=== PATIENT | female | born 1950 | race Caucasian/White ===

== ENCOUNTER 2019-11-09 09:12 | Outpatient (RCR) | payer MEDICARE ==
[~2019-11-09] VITALS: Ht 154 cm; Wt 69.5 kg
[~2019-11-09 09:12] MED LIST: AMIT50TA3 PO; BUPR150T7 PO; FLUO40CA12 PO; LEVO112T55 PO; LISI1TAB29 PO; METH-290 PO; OMEP20CA18 PO; TIZA4CAP8 PO
== END 2019-11-09 09:14 | disposition home or self-care (01) ==
LOC: PREOP 09:12
PROVIDERS: ATTEND Podiatrist Foot & Ankle Surgery
DX: Z01.818 Encounter for other preprocedural examination (principal)

== ENCOUNTER 2019-11-15 06:06 | Day surgery (SDC) | payer MEDICARE ==
[2019-11-15] VITALS (10 sets, daily range): BP systolic 133–155; BP diastolic 65–98
[~2019-11-15] VITALS: Ht 152.4 cm; Wt 70.5 kg
[2019-11-15] MEDS ORDERED: LACTATED RINGERS 1,000 ML IV PRN (06:10)
[2019-11-15] MEDS ORDERED: CLINDAMYCIN 600 MG/50 ML IVPB 50 ML IV ONE (06:15)
[2019-11-15] MEDS ORDERED: CATHETER FLUSH 10 ML SYR IV PRN (06:30)
[2019-11-15] MEDS ORDERED: ONDANSETRON 4 MG/2 ML (SDV) Z0FRAN ONE (06:41)
[2019-11-15] MEDS ORDERED: proPOfol 200 MG/20 ML (DIPRIVAN) VIAL IV ONE (06:41)
[2019-11-15] MEDS ORDERED: LIDOCAINE PF 2% 5 ML (XYLOCAINE) VIAL ONE (06:42)
[2019-11-15] MEDS ORDERED: MIDAZOLAM 2 MG/2 ML (VERSED) VIAL ONE (06:42)
[2019-11-15] MEDS ORDERED: fentaNYL INJECTION 100 MCG/2 ML AMP ONE (06:42)
[2019-11-15] MEDS ORDERED: SEVOFLURANE (ULTANE) 15 ML INHAL SOLN ONE (06:46)
[2019-11-15] MEDS ORDERED: BUPIVACAINE 0.5% 30 ML (SENSORCAINE) VIAL ONE (06:53)
--- NOTE | 2019-11-15 07:43 | Progress Note-Pre Operative ---
Pre-Operative Progress Note H&P Reviewed The H&P was reviewed, patient examined and no changes noted. Date Seen by Provider: Nov 15, 2019 Time Seen by Provider: 07:43 Date H&P Reviewed: Nov 15, 2019 Time H&P Reviewed: 07:43 Pre-Operative Diagnosis: Hallux valgus, 2nd Hammertoe, right KAM HEWITT DPM Nov 15, 2019 07:43
[2019-11-15] MEDS ORDERED: ONDANSETRON 4 MG/2 ML (SDV) Z0FRAN IVP PRN (09:30)
[2019-11-15] MEDS ORDERED: morphine INJ 10 MG/ML 1ML (SYR OR VIAL) IVP ONE (09:30)
[2019-11-15] MEDS ORDERED: fentaNYL INJECTION 100 MCG/2 ML AMP IVP ONE (09:30)
[2019-11-15] MEDS ORDERED: LACTATED RINGERS 1,000 ML IV SCH (09:35)
--- NOTE | 2019-11-15 09:35 | Progress Note-Post Operative ---
Post-Operative Progess Note Surgeon (s)/Assembly Machine Tool Setter (s) Surgeon KAM HEWITT DPM Assembly Machine Tool Setter: none Pre-Operative Diagnosis Hallux valgus, 2nd Hammertoe, right Post-Operative Diagnosis same Procedure & Operative Findings Date of Procedure 11/15/19 Procedure Performed/Findings Oracio-Juan Francisco type bunionectomy, reduction of 2nd hammertoe, right foot Anesthesia Type General Estimated Blood Loss Estimated blood loss (mL): Minimal Specimens/Packing Specimens Removed Bone from 1st metatarsal head and 2nd toe proximal phalanx KAM HEWITT DPM Nov 15, 2019 09:35
[2019-11-15] MEDS ORDERED: HYDR-3812 PO (09:39)
[2019-11-15] MEDS ORDERED: CLIN150C2 PO (09:39)
[2019-11-15] MEDS ORDERED: HYDROcodone/APAP 5 MG/325 MG (LORTAB) TAB PO PRN (09:45)
--- NOTE | 2019-11-15 10:02 | Diagnostic Imaging Report ---
INDICATION: Postop foot surgery. COMPARISON: None FINDINGS: Frontal and lateral radiographic views of the right foot were obtained and show postsurgical changes of hallux valgus revision. Orthopedic nail is also seen traversing the 2nd toe. Osteotomy defect involving the distal margins of the proximal phalanx are noted. Orthopedic nail is also present within the distal margins of the 1st metatarsal. No unexpected radiopaque foreign bodies are seen. Joint spaces are maintained. IMPRESSION: 1. Expected postsurgical changes of the right foot as described above. Dictated by: Dictated on workstation # [id number]
--- NOTE | 2019-11-15 11:22 | Physical Therapy Ortho Eval ---
PT Orthopedic Evaluation Type of Surgery hallux valgus, right hammertoe Prior Level of Function Current Living Status: Alone Locomotion (Upon Admit): Front Wheeled Walker Subjective Subjective Patient in bed pre tx, agrees to PT, has no complaints of pain. Entry Into Home: Elevator Motor Control Motor Control: Motor Control WNL ROM ROM: WFL Transfer Transfers (B, C, W/C) (FIM): 4 Gait Gait Assistive Device: FWW Right Lower Extremity: Right Weight Bearing Status RLE: Partial Weight Bearing Left Lower Extremity: Left Weight Bearing Status LLE: Non Weight Bearing Summary/Comments Patient ambulated 200' with a rolling walker with CGA, patient states she is maintaining her PWB on RLE but appears to use more. No unsteadiness or LOB. No step performed due to patient having an elevator to enter her home. Treatment Rendered Treatment: Therapeutic Exercises, Gait Train Exercise Instruction: Quad Sets, Heel Slides, Ankle Pumps Assessment/Goals Goal Time Frame: 1 Visit Understands HEP: Yes Safe Ambulation: Yes Plan Treatment Plan: Discharge PT/Family Agrees to Plan: Yes Time Time In: 1102 Time Out: 1115 Total Billed Treatment Time: 13 Billed Treatment Time 1 visit KEVIN 13' SILVIA MOORE PT Nov 15, 2019 11:22
--- NOTE | 2019-11-15 11:28 | Anesthesia-General Post-Op ---
General Patient Condition Mental Status/LOC: Same as Preop Cardiovascular: Satisfactory Nausea/Vomiting: Absent Respiratory: Satisfactory Pain: Controlled Complications: Absent Post Op Complications Complications None Follow Up Care/Instructions Patient Instructions None needed. Anesthesia/Patient Condition Patient Condition Patient is doing well, no complaints, stable vital signs, no apparent adverse anesthesia problems. No complications reported per nursing. SAYRA TOVAR CRNA Nov 15, 2019 11:28
--- NOTE | 2019-11-15 14:51 | OPERATIVE REPORT ---
DATE OF SERVICE: 11/15/2019 SURGEON: Kam Hewitt DPM. PREOPERATIVE DIAGNOSES: 1. Hallux abductovalgus metatarsal primus varus, right foot. 2. Hammer digit syndrome, right second toe. POSTOPERATIVE DIAGNOSES: 1. Hallux abductovalgus metatarsal primus varus, right foot. 2. Hammer digit syndrome, right second toe. PROCEDURES: 1. Modified Oracio-Juan Francisco bunionectomy, right. 2. Reduction of hammertoe, right second digit. WOUND CLASS: Clean. ANESTHESIA: General. HEMOSTASIS: Pneumatic thigh tourniquet at 250 mmHg. INDICATIONS: This 69-year-old female presents complaining of a painful bunion and hammertoe, right foot. Conservative therapy is met with unsatisfactory results and the patient is agreeable to surgical intervention after risks and complications were discussed at length. No guarantees were extended to the patient and she is willing to proceed. DESCRIPTION OF PROCEDURE: The patient was brought back to the operating table, placed in secure supine position. General anesthetic was then induced. Appropriate timeout was performed. Utilizing aseptic technique, the 10 mL of 0.5% Marcaine was injected into a Talavera block as well as a block to the second digit, right foot. The right foot was then prepped and draped in normal sterile manner. Appropriate timeout was performed. Pneumatic thigh tourniquet was placed on the right lower extremity over several layers of padding. The right foot was elevated, allowed to exsanguinate after which the tourniquet was inflated to 250 mmHg. Attention was then directed to the dorsal aspect of the right first ray where a 6 cm longitudinal linear incision was created. The incision was deepened in the same plane with great care to identify and retract all vital neurovascular structures. Only necessary blood vessels were cauterized as encountered. The incision was deepened down to the capsular tissue where a longitudinal capsulotomy was performed for the first metatarsophalangeal joint. The capsular tissue was reflected mediolaterally exposing the hypertrophic medial eminence to the first metatarsal head, which was resected utilizing power sagittal saw. The dorsal eminence to the first metatarsal head was also reduced with a power sagittal saw. Attention was then directed to the first intermetatarsal space where a lateral release was performed. The conjoint tendon of the adductor hallucis was released as well as a lateral capsulorrhaphy as well as the fibular sesamoidal ligament. The hallux was then forcibly adducted releasing any additional fibers holding in its abnormal position. Attention was redirected to the medial aspect of the first metatarsal head where a Chevron-type osteotomy was performed allowing the capital fragments to translocate laterally and was fixated in its corrected position with a 0.062 threaded K-wire driven from dorsal, proximal to plantar distal across the osteotomy with great care not to penetrate the articular cartilage. Excellent bony apposition and fixation was appreciated at this time. The excess K-wire was cut off the dorsal aspect of the first metatarsal. The head of the first metatarsal was further contoured and smoothed with a power bur. Attention was then directed to the proximal phalanx of the right hallux where subperiosteal dissection was carried out. A wedge of bone was resected through the diaphysis. A wedge of bone being resected, the base medial and lateral cortices held intact. Once the wedge of bone was resected, the gap was closed, noting a good reduction of the hallux valgus deformity. Next, two towboat pilot holes were created to the dorsal medial aspect of the osteotomy where a 28-gauge monofilament wire was then passed through securing the osteotomy in a closed position. The wound was flushed with copious amounts of normal saline throughout the procedure and closure was performed in layers. Deep closure was performed with 3-0 Vicryl, superficial with 4-0 Vicryl and skin closure with 4-0 Prolene in a horizontal mattress type stitch. Attention was then directed to the contracted right second toe where a 4 cm longitudinal linear incision was created from the metatarsophalangeal joint to the distal interphalangeal joint of the toe. The incision was deepened in the same plane with great care to identify and retract all vital neurovascular structures. Only necessary blood vessels were cauterized as encountered. The extensor tendon overlying the proximal phalanx had a Z slide lengthening procedure performed. The extensor tendon was reflected proximally and extensor guevara released over the metatarsophalangeal joint area. Next, a dorsal capsulorrhaphy was performed to the metatarsophalangeal joint. McGlamry elevator was utilized to release any plantar adhesions. This allowed the proximal phalanx to come down into a more rectus alignment. Attention was then directed to the head of the proximal phalanx where a peg-in-hole type arthrodesis was performed. Utilizing a power sagittal saw and power bur, the head of the proximal phalanx was fashioned into a PEG and a hole was created to the base of the middle phalanx. Next, a K-wire was driven down the toe securing the arthrodesis site in rectus alignment. The K-wire was through the proximal phalanx and out the end of the toe and a protective ball placed over the end of the wire. Excellent bony apposition and fixation was appreciated at this time. Copious amounts of normal saline were utilized throughout the procedure on the right second digit. Closure was then performed in layers. Deep closure was performed with 3-0 Vicryl, superficial with 4-0 Vicryl, skin closed with 4-0 Prolene in a horizontal mattress type stitch. Postoperative injection consisted of 12 mL of 0.5% Marcaine injected in a Talavera block as well as a block to second toe of the right foot. The patient had a postoperative dressing of Betadine soaked Adaptic, sterile 4 x 4, sterile Kerlix all secured with Coban wrap. Once the tourniquet was released, appropriate cap refill time was noted to all digits. The patient tolerated the procedure well and was transported from the operating room to the recovery area with vital signs stable. Postop instructions were given to the patient as well as prescription for Cleocin and Vicodin. She is to follow up in my office in 10 days' period of time or sooner if necessary. Job ID: [id number] DocumentID: [id number] Dictated Date: 11/15/2019 09:49:20 Shank Scourer Date: 11/15/2019 14:51:25 Dictated By: KAM HEWITT DPM
== END 2019-11-15 11:25 | disposition home or self-care (01) ==
LOC: SDC 06:06
PROVIDERS: ATTEND Podiatrist Foot & Ankle Surgery
DX: M20.11 Hallux valgus (acquired), right foot (principal); M20.31 Hallux varus (acquired), right foot; M20.41 Other hammer toe(s) (acquired), right foot; I10 Essential (primary) hypertension; K21.9 Gastro-esophageal reflux disease without esophagitis; E03.9 Hypothyroidism, unspecified; F41.9 Anxiety disorder, unspecified; F32.9 Major depressive disorder, single episode, unspecified; M19.90 Unspecified osteoarthritis, unspecified site; G89.29 Other chronic pain; M47.816 Spondylosis without myelopathy or radiculopathy, lumbar region; E11.40 Type 2 diabetes mellitus with diabetic neuropathy, unspecified; J40 Bronchitis, not specified as acute or chronic; Z79.899 Other long term (current) drug therapy; Z88.0 Allergy status to penicillin; Z91.010 Allergy to peanuts; Z88.8 Allergy status to other drugs, medicaments and biological substances; Z90.711 Acquired absence of uterus with remaining cervical stump; Z90.49 Acquired absence of other specified parts of digestive tract; Z20.828 Contact with and (suspected) exposure to other viral communicable diseases; Z80.3 Family history of malignant neoplasm of breast; Z80.9 Family history of malignant neoplasm, unspecified
CPT/HCPCS: 28285; 28296; 73620; 87081; 97161; C1713; U0002; 87635